=== PATIENT | female | born 1975 | race Caucasian/White ===

== ENCOUNTER → 2023-10-09 | Outpatient (CLI) | payer SELFPAY ==
[2023-10-15 10:09] LABS: HPV APTIMA, High Risk Negative (Negative)
== END | disposition home or self-care (01) ==
PROVIDERS: Referring Provider Registered Nurse; Visit Provider Registered Nurse
DX: Z12.4 Encounter for screening for malignant neoplasm of cervix (principal)
CPT/HCPCS: 87624; 88175; G0145

== ENCOUNTER → 2025-06-10 | Outpatient (CLI) | payer SELFPAY ==
--- OUTSIDE RECORDS SUMMARY | 2025-06-10 06:54 | XMS RPT_ITS | CCD ---
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 Name Role Phone PHYSICIAN, NOT RECORDED Primary Care Unavaila ADRIAN Kamara MD Attending Unavailable PHYSICIAN, NOT RECORDED Primary Care Physician U navailable Care Physician, No Primary Primary Care Provider Unavailable Care Physician, No Primary Referring Provider Un available OLAMIDE Spaulding Attending Provider [phone] Mauricio SHERIFF, Ana Referring Jules e Mauricio SHERIFF, Ana Attending Unavailabl e Care Physician, No Primary Primary Care Unava ilable Medications Current Medications Medication Drug Class(es) Dates Sig (Normalized) Sig (Original) acetaminophen 300 mg / butalbital 50 mg / caffeine 40 mg oral capsule (1 source) Barbiturate, Central Nervous System Stimulant, Methylxanthine Start: 10-09-2023 take 1 capsule by mouth every six hours Butalbital-Acetamin ophen-Caff (Fioricet) 50-300-40 mg capsule Active 1 CAP PO EVERY 6 HOURS 30 October 09, 2023 12:00am clobetasol propionate 0.5 mg/ml topical cream (1 source) Corticosteroid Start: 10-09-2023 Clobetasol Active 1 APPLIC TOPICAL DAILY October 09, 2023 12:00am hydrocortisone 10 mg/ml topical cream (1 source) Corticosteroid Start: 10-09-2023 Hydrocortisone (Cortisone (Hydrocortisone)) 1 % cream Active 1 APPLIC TOPICAL THREE TIMES A DAY October 09, 2023 12:00am Problems Problem Classification Problem Date Documented Date Episodic/Chronic Headache; including migraine (2 sources) Ophthalmic migraine; Translations: [Migraine with aura, not intractable, without status migrainosus] 10-09-2023 Chronic Menstrual disorders (2 sources) Irregular periods; Translations: [Irregular menstruation, unspecified] 10-09-2023 Chronic Other screening for suspected conditions (not mental disorders or infectious disease) (1 source) Encounter for screening for cardiovascular disorders; Translations: [Encounter for screening for cardiovascular disorders] Onset: 05-28-2025 Episodic Other skin disorders (2 sources) Lichen sclerosus et atrophicus; Translations: [Lichen sclerosus et atrophicus] 10-09-2023 Chronic Results Test Name Value Interpretation Reference Range Facil ity MRI KNEE W/O CONTRAST LEFTon 07-24-2022 MRI KNEE W/O CONTRAST LEFT ORIGINAL EXAMINATION: MRI OF THE LEFT KNEE WITHOUT CONTRAST07/24/2022 9:02 am TECHNIQUE: Multiplanar multisequence MRI of the left knee was performed without the administration of intravenous contrast. COMPARISON: None HISTORY: ORDERING SYSTEM PROVIDED HISTORY: Reason for Exam: SPRAIN OF LEFT KNEE. Left knee pain. Skiing accident. FINDINGS: MUSCLES, TENDONS, AND LIGAMENTS: Complete tear of the anterior cruciate ligament is noted at its proximal substance. The posterior cruciate ligament is intact. The medial collateral ligament is intact. The lateral collateral ligament complex is intact. However, there is significant periligamentous edema of the lateral collateral ligament as well as arcuate ligament. The popliteus and biceps femoris tendons, iliotibial band, and extensor mechanism are intact. Low-grade strain distal biceps femoris muscle and myotendinous junction. MENISCI: The medial meniscus is intact. The lateral meniscus is intact. OSSEOUS STRUCTURES AND JOINTS: There is bone marrow edema and cortical depression of the posterior aspect of lateral tibial plateau involving the non articular portion, best seen on sagittal images 17-. No additional fractures are evident. No dislocation. No visualized marrow replacing osseous lesions. Medial femorotibial compartment articular cartilage is intact. Lateral femorotibial compartment articular cartilage is intact. Patellofemoral compartment articular cartilage is intact. Moderate volume effusion. Thin suprapatellar plica. SOFT TISSUES: No significant volume of fluid is evident in a popliteal cyst. IMPRESSION: 1. Complete tear of anterior cruciate ligament at its proximal substance. Mild degree of posterolateral corner injury. 2. Mildly depressed fracture of the nonarticular lateral tibial plateau as detailed above with mild associated bone marrow edema. 3. Moderate volume effusion. RECOMMENDATIONS: Unavailable Interpreted by: Russel Mckeon DO Preliminary Report By: Russel Mckeon DO Electronically signed By Russel Mckeon DO Dictated Date: 07/24/2022 9:10:59 AM Prelim Date: 07/24/2022 9:20:48 AM Sign Date: 07/24/2022 9:20:48 AM Ordering Provider: ADRIAN Milligan [facility] ([place]) Vital Signs Date Time Vital Sign Value Performing Clinician Kelli dillaxel 10-09-2023 09:06-0400 Body height 167.64 cm No Primary Care Physician [facility] 10-09-2023 09:06-0400 Body mass index (BMI) [Ratio] 30.7 kg/m2 No Primary Care Physician [facility] 10-09-2023 09:06-0400 Body weight 86.23 kg No Primary Care Physician [facility] 10-09-2023 09:06-0400 Diastolic blood pressure 84 mm[Hg] No Primary Care Physician [facility] 10-09-2023 09:06-0400 Systolic blood pressure 126 mm[Hg] No Primary Care Physician [facility] Encounters Encounter Date Encounter Type Care Provider Facility Start: 06-10-2025 ambulatory Ana Martínez NP Fa cility:[facility] Start: 10-09-2023 End: 10-09-2023 ambulatory No Primary Care Physician [facility] Work Phone: Start: 10-09-2023 End: 10-09-2023 Patient encounter procedure No Primary Care Physician [facility], Specimen Work Phone: Start: 10-09-2023 End: 10-09-2023 Patient encounter procedure No Primary Care Physician [facility] Work Phone: Start: 07-24-2022 ambulatory NOT RECORDED PHYSICIAN Facility:B Start: 07-24-2022 End: 07-24-[address] ADRIAN JUDD MD [facility] Plan of Treatment Date Care Activity Detail Author Start: 10-09-2023 Patient referral [facility] Work Phone: Start: 10-09-2023 Liquid based cervica l cytology screening [facility] MG Breast - bilateral Screening [facility] Path report.final Dx Spec [facility] Patient referral [facility] Work Phone: [facility] Payers Date Payer Category Payer Self-pay 1975 Unknown [id number] Medicaid MEDICAID [id number] Unknown [id number] Social History Date Type Detail Facility Tobacco smoking status [facility] Start: 1975 Sex Assigned At Female A [facility] Start: 10-09-2023 Tobacco smoking stat [facility] Unknown if ever smoked [facility] Clinical Note 07-24-2022 Note Date & Type Note Facility 07-24-2022 Note ORIGINAL EXAMINATION: MRI OF THE LEFT KNEE WITHOUT CONTRAST07/24/2022 9:02 am TECHNIQUE: Multiplanar multisequence MRI of the left knee was performed without the administration of intravenous contrast. COMPARISON: None HISTORY: ORDERING SYSTEM PROVIDED HISTORY: Reason for Exam: SPRAIN OF LEFT KNEE. Left knee pain. Skiing accident. FINDINGS: MUSCLES, TENDONS, AND LIGAMENTS: Complete tear of the anterior cruciate ligament is noted at its proximal substance. The posterior cruciate ligament is intact. The medial collateral ligament is intact. The lateral collateral ligament complex is intact. However, there is significant periligamentous edema of the lateral collateral ligament as well as arcuate ligament. The popliteus and biceps femoris tendons, iliotibial band, and extensor mechanism are intact. Low-grade strain distal biceps femoris muscle and myotendinous junction. MENISCI: The medial meniscus is intact. The lateral meniscus is intact. OSSEOUS STRUCTURES AND JOINTS: There is bone marrow edema and cortical depression of the posterior aspect of lateral tibial plateau involving the non articular portion, best seen on sagittal images -. No additional fractures are evident. No dislocation. No visualized marrow replacing osseous lesions. Medial femorotibial compartment articular cartilage is intact. Lateral femorotibial compartment articular cartilage is intact. Patellofemoral compartment articular cartilage is intact. Moderate volume effusion. Thin suprapatellar plica. SOFT TISSUES: No significant volume of fluid is evident in a popliteal cyst. IMPRESSION: 1. Complete tear of anterior cruciate ligament at its proximal substance. Mild degree of posterolateral corner injury. 2. Mildly depressed fracture of the nonarticular lateral tibial plateau as detailed above with mild associated bone marrow edema. 3. Moderate volume effusion. RECOMMENDATIONS: Unavailable Interpreted by: Russel Mckeon DO Preliminary Report By: Russel Mckeon DO Electronically signed By Russel Mckeon DO Dictated Date: 07/24/2022 9:10:59 AM Prelim Date: 07/24/2022 9:20:48 AM Sign Date: 07/24/2022 9:20:48 AM Ordering Provider: ADRIAN BINTA [facility] Clinical Note 07-24-2022 Note Date & Type Note Facility 07-24-2022 Note ORIGINAL EXAMINATION: MRI OF THE LEFT KNEE WITHOUT CONTRAST07/24/2022 9:02 am TECHNIQUE: Multiplanar multisequence MRI of the left knee was performed without the administration of intravenous contrast. COMPARISON: None HISTORY: ORDERING SYSTEM PROVIDED HISTORY: Reason for Exam: SPRAIN OF LEFT KNEE. Left knee pain. Skiing accident. FINDINGS: MUSCLES, TENDONS, AND LIGAMENTS: Complete tear of the anterior cruciate ligament is noted at its proximal substance. The posterior cruciate ligament is intact. The medial collateral ligament is intact. The lateral collateral ligament complex is intact. However, there is significant periligamentous edema of the lateral collateral ligament as well as arcuate ligament. The popliteus and biceps femoris tendons, iliotibial band, and extensor mechanism are intact. Low-grade strain distal biceps femoris muscle and myotendinous junction. MENISCI: The medial meniscus is intact. The lateral meniscus is intact. OSSEOUS STRUCTURES AND JOINTS: There is bone marrow edema and cortical depression of the posterior aspect of lateral tibial plateau involving the non articular portion, best seen on sagittal images -. No additional fractures are evident. No dislocation. No visualized marrow replacing osseous lesions. Medial femorotibial compartment articular cartilage is intact. Lateral femorotibial compartment articular cartilage is intact. Patellofemoral compartment articular cartilage is intact. Moderate volume effusion. Thin suprapatellar plica. SOFT TISSUES: No significant volume of fluid is evident in a popliteal cyst. IMPRESSION: 1. Complete tear of anterior cruciate ligament at its proximal substance. Mild degree of posterolateral corner injury. 2. Mildly depressed fracture of the nonarticular lateral tibial plateau as detailed above with mild associated bone marrow edema. 3. Moderate volume effusion. RECOMMENDATIONS: Unavailable Interpreted by: Russel Mckeon DO Preliminary Report By: Russel Mckeon DO Electronically signed By Russel Mckeon DO Dictated Date: 07/24/2022 9:10:59 AM Prelim Date: 07/24/2022 9:20:48 AM Sign Date: 07/24/2022 9:20:48 AM Ordering Provider: ADRIAN JUDD [facility] Evaluation + Plan note Note Date & Type Note Facility Evaluation + Plan note No data available for this section [facility] Evaluation note Note Date & Type Note Facility Evaluation note Diagnosis Onset Date Irregular menstrual bleeding acute Lichen sclerosus acute Ophthalmic migraine acute Women's annual routine gynec ological examination acute [facility] Work Phone: Hospital Discharge instructions Note Date & Type Note Facility Hospital Discharge instructions No data available for this section [facility] Hospital Discharge instructions Note Date & Type Note Facility Hospital Discharge instructions Ambulatory OrdersGeneral Surgery Location: None Selected [facility] Work Phone: Summary Purpose Family History No Family History Records Found Relationship Condition Age at Onset Recorded Date/T douglas grandfather Diabetes mellitus Unknown grandmother Aneurysm Unknown Advance Directives No Advanced Directives Records FoundNo Advanced Directives Records Found Chief Complaint and Reason for Visit Chief Complaint 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) Reason for Visit Irregular menstrual bleeding Lichen sclerosus Ophthalmic migraine Women's annual routine gynecological examination Additional Source Comments INFORMATION SOURCE (unrecogn ized section and content) DATE CREATED AUTHOR 07/24/2022 [facility] ([place]) DATE CREATED AUTHOR AUTHOR'S ORGANIZ ATION 05/30/2025 [facility] Care Team (unrecognized sect ion and content) Care Team Personnel Name: PHYSICIAN, NOT RECORDED Member Role: Primary Care Physician Care Teams (unrecognized sec tion and content) Team Status: Active Member Role Status Dates No Primary Care Physician Primary Care Provider Active Team Status: Inactive Member Role Status Dates No Primary Care Physician Primary Care Provider, Refer ring Provider Active Rowan Spaulding CNM Attending Provider Active Team Status: Inactive Member Role Status Dates No Primary Care Physician Primary Care Provider Active Rowan Spaulding CNM Attending Provider, Referring Pr ovider Active Goals (unrecognized section and content) Goals may be documented in a n alternate section FOR RECORDS PERTAINING TO PATIENTS WHO ARE OR HAVE BEEN ENROLLED IN A CHEMICAL DEPENDENCY/SUBSTANCEABUSE PROGRAM, SOME INFORMATION MAY BE OMITTED. This clinical summary was aggregated from multiple sources. Caution should be exercised in using it in the provision of clinical care. This summary normalizes information from multiple sources, and as a consequence, information in this document may materially change the coding, format and clinical context of patient data. In addition, data may be omitted in some cases. CLINICAL DECISIONS SHOULD BE BASED ON THE PRIMARY CLINICAL RECORDS. [facility]. provides no warranty or guarantee of the accuracy or completeness of information in this document.
--- NOTE | 2025-06-10 06:55 | CT_ITS ---
PROCEDURE: LIMITED CHEST CT CARDIAC ONLY 06/10/2025 REASON FOR EXAM: CAD Hypercholesterolemia. Family history of coronary artery disease. TECHNIQUE: Procedure Code: [id number] Modality: CT Procedure: LIMITED CHEST CT CARDIAC ONLY One or more dose reduction techniques were used (e.g., Automated exposure control, adjustment of the mA and/or kV according to patient size, use of iterative reconstruction technique). RADIATION DOSE SUMMARY: CTDlvol: 12.19 mGy DLP: 219.42 mGycm COMPARISON: None. CT/Limited Chest CT Cardiac Only IMPRESSION: Limited imaging of the lungs demonstrates a small area of ground-glass opacity in the right upper lobe, near the superior extent of imaging. In the anterior aspect of the tail of the pancreas, an approximately 3.9 x 4.8 cm cyst is seen. Limited imaging of the lungs demonstrates no other acute process. No pleural effusion or pneumothorax is seen in visualized areas. No adenopathy is noted. The visualized upper abdomen demonstrates no other significant abnormality. Reading Location: [place] [id number]
--- NOTE | 2025-06-11 06:50 | CA.SCORE ---
Calcium Scoring Date of Study:: 06/10/25 Indications Indications: screeening Coronary Calcium Scoring: High-resolution Computed Tomographic imaging of the chest was performed on [06/10/25 ], with particular attention paid to the coronary arteries. Images from the examination were analyzed for the presence and extent of coronary artery calcification , using coronary calcium quantification software. The patient tolerated the procedure well and there were no complications. The results of the coronary calcification analysis are provided below. Findings Coronary Artery Left Main (LM): 0 Left Anterior Descending (LAD): 0 Left Circumflex (LCX): 0 Right Coronary Artery (RCA): 0 Total Agatston Score: 0 Percentile Rankin Calcium Scoring Interpretation: Different methods to categorize the overall amount of coronary plaque. Overall amount CAC SIS Visual of coronary plaque P1 Mild -100 <2 1-2 vessels with mild amount of plaque P2 Moderate 101-300 3-4 1-2 vessels with moderate amount, 3 vessels with mild amount of plaque P3 Severe 301-999 5-7 3 vessels with moderate amount, 1 vessel with severe amount of plaque P4 Extensive >1000 >8 2-3 vessels with severe amount of plaque Conclusion: No atherosclerotic plaquing
== END | disposition home or self-care (01) ==
LOC: CT 06:52
PROVIDERS: Referring Provider Registered Nurse; Visit Provider Registered Nurse
DX: Z13.6 Encounter for screening for cardiovascular disorders (principal)
CPT/HCPCS: 75571; 76380